=== PATIENT | female | born 1965 | race African-American/Black ===

== ENCOUNTER 2017-02-16 16:45 | Outpatient (RCR) | payer OTHER ==
[~2017-02-16 16:45] MED LIST: ADVAIR IH; AMOXICILLIN875 MG PO; AUBAGIO7 MG PO; AZULFIDINE500 MG/TAB PO; BACTRIM DS 8001 TAB PO; BENZONATATE200 MG PO; CEPHALEXIN500 M1 PO; CLARITIN; CLARITIN 1010 MG/TAB PO; FERROUS SULFATE65 MG PO; FLONASE NASAL S16 GM NS; GENTAMICIN EYE D5 ML OS; HCTZ 25MG25 MG PO; IBUPROFEN800 MG PO; LISINOPRIL10 MG PO; LO LOESTRIN FE1 TAB PO; LORATADINE10 MG PO; MOBIC 7.5MG7.5 MG PO; MULTIPLE VITAMI1 TA5 PO; MVI; NORCO 325 MG-51 TAB PO; PERCOCET 500 MG1 TAB PO; PHENERGAN W/CO120 ML PO; PREDNISONE20 MG PO; PROAIR HFA0.09 MG/AC IH; SINGULAIR; SINGULAIR 110 MG/TAB PO; SOLU CORTE IJ; VENTOLIN0.09 MG IH; VITAMIN D; VITAMIN D1000 IU PO; ZITHROMAX Z PA250 MG PO; ZOFRAN 4MG T4 MG/TAB PO
== END 2017-03-01 | disposition home or self-care (01) ==
LOC: WSPT
DX: G35 Multiple sclerosis (principal)

== ENCOUNTER → 2017-05-11 | Outpatient (CLI) | payer OTHER | LOC: COL.RAD 11:09 | DX: D25.9 Leiomyoma of uterus, unspecified (principal) ==

== ENCOUNTER 2017-06-01 16:45 | Outpatient (RCR) | payer OTHER | END 2017-06-14 | disposition still patient (30) | LOC: WSPT | DX: G35 Multiple sclerosis (principal) ==

== ENCOUNTER → 2017-08-17 | Outpatient (CLI) | payer OTHER | LOC: COL.RAD 09:45 | DX: G35 Multiple sclerosis (principal); M48.02 Spinal stenosis, cervical region; M50.322 Other cervical disc degeneration at C5-C6 level; M79.604 Pain in right leg; R16.0 Hepatomegaly, not elsewhere classified | CPT/HCPCS: A9585 ==

== ENCOUNTER 2017-08-31 16:45 | Outpatient (RCR) | payer OTHER | END 2017-09-13 | LOC: WSPT | DX: G35 Multiple sclerosis (principal) ==

== ENCOUNTER 2017-12-07 16:45 | Outpatient (RCR) | payer OTHER | END 2017-12-13 | LOC: WSPT | DX: G35 Multiple sclerosis (principal); M13.0 Polyarthritis, unspecified ==

== ENCOUNTER 2018-03-01 16:45 | Outpatient (RCR) | payer OTHER | END 2018-03-21 | disposition home or self-care (01) | LOC: WSPT | DX: G35 Multiple sclerosis (principal) ==

== ENCOUNTER 2018-06-14 16:45 | Outpatient (RCR) | payer OTHER | END 2018-06-20 | disposition home or self-care (01) | LOC: WSPT | DX: G35 Multiple sclerosis (principal); M25.551 Pain in right hip; M25.572 Pain in left ankle and joints of left foot ==

== ENCOUNTER 2018-09-27 15:00 | Outpatient (RCR) | payer OTHER | END 2018-10-06 | disposition home or self-care (01) | LOC: WSPT | DX: G35 Multiple sclerosis (principal) ==

== ENCOUNTER → 2018-10-09 | Outpatient (CLI) | payer OTHER | LOC: MHCPAIN 14:53 | DX: G89.29 Other chronic pain (principal); M47.817 Spondylosis without myelopathy or radiculopathy, lumbosacral region; M54.16 Radiculopathy, lumbar region; M53.3 Sacrococcygeal disorders, not elsewhere classified | CPT/HCPCS: G0463 ==

== ENCOUNTER → 2018-11-11 | Outpatient (CLI) | payer OTHER | LOC: MHCPAIN 12:14 | DX: M47.817 Spondylosis without myelopathy or radiculopathy, lumbosacral region (principal); M54.16 Radiculopathy, lumbar region | CPT/HCPCS: J1100; Q9967 ==

== ENCOUNTER → 2018-11-27 | Outpatient (CLI) | payer OTHER | LOC: MHCPAIN 08:56 | DX: G89.29 Other chronic pain (principal); M47.817 Spondylosis without myelopathy or radiculopathy, lumbosacral region; M54.16 Radiculopathy, lumbar region; M53.3 Sacrococcygeal disorders, not elsewhere classified | CPT/HCPCS: G0463 ==

== ENCOUNTER → 2018-12-05 | Outpatient (CLI) | payer OTHER | LOC: MHCPAIN 14:39 | DX: M47.817 Spondylosis without myelopathy or radiculopathy, lumbosacral region (principal); M54.16 Radiculopathy, lumbar region | CPT/HCPCS: J1100; Q9967 ==

== ENCOUNTER → 2019-01-08 | Outpatient (CLI) | payer OTHER | LOC: MHCPAIN 14:12 | DX: G89.29 Other chronic pain (principal); M47.817 Spondylosis without myelopathy or radiculopathy, lumbosacral region; M54.16 Radiculopathy, lumbar region; M53.3 Sacrococcygeal disorders, not elsewhere classified | CPT/HCPCS: G0463 ==

== ENCOUNTER 2019-01-17 16:45 | Outpatient (RCR) | payer OTHER | END 2019-01-30 | LOC: WSPT | DX: G35 Multiple sclerosis (principal) ==

== ENCOUNTER → 2019-01-23 | Outpatient (CLI) | payer OTHER | LOC: MHCPAIN 15:05 | DX: M47.817 Spondylosis without myelopathy or radiculopathy, lumbosacral region (principal); M54.16 Radiculopathy, lumbar region | CPT/HCPCS: J1100; Q9967 ==

== ENCOUNTER → 2019-03-26 | Outpatient (CLI) | payer OTHER | LOC: MHCPAIN 15:32 | DX: G89.29 Other chronic pain (principal); M47.817 Spondylosis without myelopathy or radiculopathy, lumbosacral region; M54.16 Radiculopathy, lumbar region; M53.3 Sacrococcygeal disorders, not elsewhere classified | CPT/HCPCS: G0463 ==

== ENCOUNTER 2019-04-11 16:45 | Outpatient (RCR) | payer OTHER | END 2019-05-08 | LOC: WSPT | DX: G35 Multiple sclerosis (principal) ==

== ENCOUNTER → 2019-04-22 | Outpatient (CLI) | payer OTHER | LOC: MHCPAIN 09:33 | DX: G89.29 Other chronic pain (principal); M47.817 Spondylosis without myelopathy or radiculopathy, lumbosacral region; M54.16 Radiculopathy, lumbar region; M53.3 Sacrococcygeal disorders, not elsewhere classified | CPT/HCPCS: G0463 ==

== ENCOUNTER → 2019-04-25 | Outpatient (CLI) | payer OTHER | LOC: COL.RAD 08:00 | DX: G35 Multiple sclerosis (principal); M47.812 Spondylosis without myelopathy or radiculopathy, cervical region | CPT/HCPCS: A9585 ==

== ENCOUNTER → 2019-05-01 | Outpatient (CLI) | payer OTHER | LOC: MHCPAIN 13:33 | DX: M47.817 Spondylosis without myelopathy or radiculopathy, lumbosacral region (principal); M54.16 Radiculopathy, lumbar region ==

== ENCOUNTER → 2019-05-07 | Outpatient (CLI) | payer OTHER | LOC: MHCPAIN 15:35 | DX: G89.29 Other chronic pain (principal); M47.817 Spondylosis without myelopathy or radiculopathy, lumbosacral region; M53.3 Sacrococcygeal disorders, not elsewhere classified | CPT/HCPCS: G0463 ==

== ENCOUNTER → 2019-05-09 | Outpatient (CLI) | payer OTHER | LOC: COL.RAD 10:29 | DX: G35 Multiple sclerosis (principal); M51.34 Other intervertebral disc degeneration, thoracic region | CPT/HCPCS: A9585 ==

== ENCOUNTER → 2019-05-29 | Outpatient (CLI) | payer OTHER | LOC: MHCPAIN 13:42 | DX: M47.817 Spondylosis without myelopathy or radiculopathy, lumbosacral region (principal); M54.16 Radiculopathy, lumbar region | CPT/HCPCS: J1100; J2250; J3010 ==

== ENCOUNTER → 2019-06-12 | Outpatient (CLI) | payer OTHER | LOC: MHCPAIN 13:39 | DX: M47.817 Spondylosis without myelopathy or radiculopathy, lumbosacral region (principal); M54.16 Radiculopathy, lumbar region | CPT/HCPCS: J1100; J2250; J3010 ==

== ENCOUNTER 2019-08-01 16:45 | Outpatient (RCR) | payer OTHER | END 2019-08-14 | disposition home or self-care (01) | LOC: WSPT | DX: G35 Multiple sclerosis (principal); R20.0 Anesthesia of skin ==

== ENCOUNTER → 2019-08-13 | Outpatient (CLI) | payer OTHER | LOC: MHCPAIN 15:32 | DX: M47.817 Spondylosis without myelopathy or radiculopathy, lumbosacral region (principal); M53.3 Sacrococcygeal disorders, not elsewhere classified | CPT/HCPCS: G0463 ==

== ENCOUNTER 2019-11-14 16:45 | Outpatient (RCR) | payer OTHER | END 2019-11-27 | disposition home or self-care (01) | LOC: WSPT | DX: G35 Multiple sclerosis (principal) ==

== ENCOUNTER → 2020-01-14 | Outpatient (CLI) | payer OTHER | LOC: MHCPAIN 15:33 | DX: M54.5 Low back pain (principal); M53.3 Sacrococcygeal disorders, not elsewhere classified; G89.29 Other chronic pain | CPT/HCPCS: G0463 ==

== ENCOUNTER → 2020-03-03 | Outpatient (CLI) | payer OTHER | LOC: MHCPAIN 14:52 | DX: M47.817 Spondylosis without myelopathy or radiculopathy, lumbosacral region (principal); M54.5 Low back pain; M53.3 Sacrococcygeal disorders, not elsewhere classified; G89.29 Other chronic pain | CPT/HCPCS: G0463 ==

== ENCOUNTER → 2020-03-11 | Outpatient (CLI) | payer OTHER | LOC: MHCPAIN 14:31 | DX: M47.817 Spondylosis without myelopathy or radiculopathy, lumbosacral region (principal); M54.5 Low back pain | CPT/HCPCS: J1100; Q9967 ==

== ENCOUNTER → 2020-03-24 | Outpatient (CLI) | payer OTHER | LOC: MHCPAIN 15:53 | DX: M47.817 Spondylosis without myelopathy or radiculopathy, lumbosacral region (principal); M54.5 Low back pain; M53.3 Sacrococcygeal disorders, not elsewhere classified; G89.29 Other chronic pain; M54.16 Radiculopathy, lumbar region | CPT/HCPCS: G0463 ==

== ENCOUNTER → 2020-04-08 | Outpatient (CLI) | payer OTHER | LOC: MHCPAIN 14:26 | DX: M47.817 Spondylosis without myelopathy or radiculopathy, lumbosacral region (principal); M54.5 Low back pain; M53.3 Sacrococcygeal disorders, not elsewhere classified | CPT/HCPCS: J1100; Q9967 ==

== ENCOUNTER → 2020-05-04 | Outpatient (CLI) | payer OTHER | LOC: MHCPAIN 04-19 11:06 | DX: M47.817 Spondylosis without myelopathy or radiculopathy, lumbosacral region (principal); M54.5 Low back pain; M53.3 Sacrococcygeal disorders, not elsewhere classified; G89.29 Other chronic pain; M54.16 Radiculopathy, lumbar region | CPT/HCPCS: G0463 ==

== ENCOUNTER → 2020-05-06 | Outpatient (CLI) | payer OTHER | LOC: MHCPAIN 14:51 | DX: M47.817 Spondylosis without myelopathy or radiculopathy, lumbosacral region (principal); M54.16 Radiculopathy, lumbar region | CPT/HCPCS: J1100; Q9967 ==

== ENCOUNTER → 2020-05-25 | Outpatient (CLI) | payer OTHER | LOC: MHCPAIN 15:36 | DX: M47.817 Spondylosis without myelopathy or radiculopathy, lumbosacral region (principal); M54.5 Low back pain; M53.3 Sacrococcygeal disorders, not elsewhere classified; G89.29 Other chronic pain | CPT/HCPCS: G0463 ==

== ENCOUNTER → 2020-05-27 | Outpatient (CLI) | payer OTHER | LOC: MHCPAIN 15:08 | DX: M47.817 Spondylosis without myelopathy or radiculopathy, lumbosacral region (principal); M54.5 Low back pain ==

== ENCOUNTER 2020-06-04 16:30 | Outpatient (RCR) | payer OTHER | END 2020-06-17 | disposition home or self-care (01) | LOC: WSPT | DX: G35 Multiple sclerosis (principal) ==

== ENCOUNTER → 2020-06-15 | Outpatient (CLI) | payer OTHER | LOC: MHCPAIN 15:53 | DX: M47.817 Spondylosis without myelopathy or radiculopathy, lumbosacral region (principal); M54.5 Low back pain; M53.3 Sacrococcygeal disorders, not elsewhere classified; G89.29 Other chronic pain | CPT/HCPCS: G0463 ==

== ENCOUNTER → 2020-07-01 | Outpatient (CLI) | payer OTHER | LOC: MHCPAIN 14:08 | DX: M47.817 Spondylosis without myelopathy or radiculopathy, lumbosacral region (principal); M54.5 Low back pain | CPT/HCPCS: J2250; J3010 ==

== ENCOUNTER → 2020-07-05 | Outpatient (CLI) | payer OTHER | LOC: MHCPAIN 12:44 | DX: M47.817 Spondylosis without myelopathy or radiculopathy, lumbosacral region (principal); M54.5 Low back pain | CPT/HCPCS: J2250; J3010 ==

== ENCOUNTER 2020-08-13 16:30 | Outpatient (RCR) | payer OTHER | END 2020-08-30 | disposition home or self-care (01) | LOC: WSPT | DX: G35 Multiple sclerosis (principal) ==

== ENCOUNTER → 2020-09-07 | Outpatient (CLI) | payer OTHER | LOC: MHCPAIN 10:02 | DX: M47.817 Spondylosis without myelopathy or radiculopathy, lumbosacral region (principal); M79.2 Neuralgia and neuritis, unspecified; G89.29 Other chronic pain; M53.3 Sacrococcygeal disorders, not elsewhere classified | CPT/HCPCS: G0463 ==

== ENCOUNTER 2020-11-26 16:45 | Outpatient (RCR) | payer OTHER | END 2020-12-05 | disposition home or self-care (01) | LOC: WSPT | DX: M25.561 Pain in right knee (principal) ==

== ENCOUNTER → 2020-11-26 | Outpatient (CLI) | payer OTHER | LOC: COL.RAD 11-16 08:15 | DX: M17.11 Unilateral primary osteoarthritis, right knee (principal) ==

== ENCOUNTER → 2020-12-31 | Outpatient (CLI) | payer OTHER | LOC: COL.RAD 14:40 | DX: M47.816 Spondylosis without myelopathy or radiculopathy, lumbar region (principal); M48.061 Spinal stenosis, lumbar region without neurogenic claudication; S33.130A Subluxation of L3/L4 lumbar vertebra, initial encounter; S33.140A Subluxation of L4/L5 lumbar vertebra, initial encounter; S33.39XA Dislocation of other parts of lumbar spine and pelvis, initial encounter; R19.00 Intra-abdominal and pelvic swelling, mass and lump, unspecified site ==

== ENCOUNTER → 2021-01-05 | Outpatient (CLI) | payer OTHER | LOC: MHCPAIN 15:11 | DX: M47.817 Spondylosis without myelopathy or radiculopathy, lumbosacral region (principal); M54.5 Low back pain; M54.16 Radiculopathy, lumbar region; M53.3 Sacrococcygeal disorders, not elsewhere classified | CPT/HCPCS: G0463 ==

== ENCOUNTER 2021-04-01 16:30 | Outpatient (RCR) | payer OTHER | END 2021-04-07 | disposition home or self-care (01) | LOC: WSPT | DX: M51.36 Other intervertebral disc degeneration, lumbar region (principal); M47.819 Spondylosis without myelopathy or radiculopathy, site unspecified; M48.062 Spinal stenosis, lumbar region with neurogenic claudication; M48.061 Spinal stenosis, lumbar region without neurogenic claudication ==

== ENCOUNTER 2021-06-17 16:30 | Outpatient (RCR) | payer OTHER | END 2021-07-28 | disposition home or self-care (01) | LOC: WSPT | DX: G35 Multiple sclerosis (principal); Z91.81 History of falling ==

== ENCOUNTER → 2021-07-06 | Outpatient (CLI) | payer OTHER | LOC: MHCPAIN 06-30 10:31 | DX: M47.816 Spondylosis without myelopathy or radiculopathy, lumbar region (principal); M54.50 Low back pain, unspecified; M53.3 Sacrococcygeal disorders, not elsewhere classified | CPT/HCPCS: G0463; J1100; Q9967 ==

== ENCOUNTER → 2021-07-19 | Outpatient (CLI) | payer OTHER | LOC: MHCPAIN 14:53 | DX: M47.817 Spondylosis without myelopathy or radiculopathy, lumbosacral region (principal); M48.062 Spinal stenosis, lumbar region with neurogenic claudication; M54.16 Radiculopathy, lumbar region; M53.3 Sacrococcygeal disorders, not elsewhere classified | CPT/HCPCS: G0463 ==

== ENCOUNTER → 2021-08-04 | Outpatient (CLI) | payer OTHER | LOC: MHCPAIN 14:29 | DX: M47.817 Spondylosis without myelopathy or radiculopathy, lumbosacral region (principal); M53.3 Sacrococcygeal disorders, not elsewhere classified; M54.16 Radiculopathy, lumbar region | CPT/HCPCS: J1100; Q9967 ==

== ENCOUNTER → 2021-09-05 | Outpatient (CLI) | payer OTHER | LOC: MHCPAIN 15:06 | DX: M47.817 Spondylosis without myelopathy or radiculopathy, lumbosacral region (principal); M53.3 Sacrococcygeal disorders, not elsewhere classified; M54.16 Radiculopathy, lumbar region; G89.29 Other chronic pain | CPT/HCPCS: G0463 ==

== ENCOUNTER → 2021-09-22 | Outpatient (CLI) | payer OTHER | LOC: MHCPAIN 13:33 | DX: M47.817 Spondylosis without myelopathy or radiculopathy, lumbosacral region (principal); M53.3 Sacrococcygeal disorders, not elsewhere classified; M54.16 Radiculopathy, lumbar region | CPT/HCPCS: J1100; Q9967 ==

== ENCOUNTER → 2021-09-26 | Outpatient (CLI) | payer OTHER | LOC: COL.RAD 09:20 | DX: M50.322 Other cervical disc degeneration at C5-C6 level (principal); M48.02 Spinal stenosis, cervical region; M48.07 Spinal stenosis, lumbosacral region | CPT/HCPCS: A9585 ==

== ENCOUNTER → 2021-10-03 | Outpatient (CLI) | payer OTHER | LOC: COL.RAD 09-23 09:00 | DX: M48.061 Spinal stenosis, lumbar region without neurogenic claudication (principal); M47.816 Spondylosis without myelopathy or radiculopathy, lumbar region; M43.16 Spondylolisthesis, lumbar region; M51.26 Other intervertebral disc displacement, lumbar region; G35 Multiple sclerosis; M48.07 Spinal stenosis, lumbosacral region | CPT/HCPCS: A9585 ==

== ENCOUNTER 2022-01-10 15:54 | Outpatient (RCR) | payer OTHER | END 2022-01-24 | disposition home or self-care (01) | LOC: WSPT | DX: M48.062 Spinal stenosis, lumbar region with neurogenic claudication (principal); M43.16 Spondylolisthesis, lumbar region ==

== ENCOUNTER → 2022-01-30 | Outpatient (CLI) | payer OTHER | LOC: MHCPAIN 14:33 | DX: M47.817 Spondylosis without myelopathy or radiculopathy, lumbosacral region (principal); M54.50 Low back pain, unspecified; M54.16 Radiculopathy, lumbar region; M53.3 Sacrococcygeal disorders, not elsewhere classified | CPT/HCPCS: G0463 ==

== ENCOUNTER → 2022-02-13 | Outpatient (CLI) | payer OTHER | LOC: MHCPAIN 14:30 | DX: M47.817 Spondylosis without myelopathy or radiculopathy, lumbosacral region (principal); M53.3 Sacrococcygeal disorders, not elsewhere classified; M54.17 Radiculopathy, lumbosacral region | CPT/HCPCS: J1100; Q9967 ==

== ENCOUNTER 2022-02-22 16:45 | Outpatient (RCR) | payer OTHER | END 2022-02-23 | disposition home or self-care (01) | LOC: WSPT | DX: M48.062 Spinal stenosis, lumbar region with neurogenic claudication (principal); M43.16 Spondylolisthesis, lumbar region ==

== ENCOUNTER 2022-03-09 13:30 | Outpatient (RCR) | payer OTHER | END 2022-03-26 | disposition home or self-care (01) | LOC: WSPT | DX: M48.062 Spinal stenosis, lumbar region with neurogenic claudication (principal); M43.16 Spondylolisthesis, lumbar region ==

== ENCOUNTER 2022-04-20 15:45 | Outpatient (RCR) | payer OTHER | END 2022-04-26 | disposition home or self-care (01) | LOC: WSPT | DX: M48.062 Spinal stenosis, lumbar region with neurogenic claudication (principal); M43.16 Spondylolisthesis, lumbar region; G35 Multiple sclerosis ==

== ENCOUNTER → 2022-07-06 | Outpatient (CLI) | payer OTHER | LOC: MHCPAIN 13:07 | DX: M47.817 Spondylosis without myelopathy or radiculopathy, lumbosacral region (principal); M53.3 Sacrococcygeal disorders, not elsewhere classified; M54.17 Radiculopathy, lumbosacral region | CPT/HCPCS: G0463; J1100; Q9967 ==

== ENCOUNTER → 2022-11-07 | Outpatient (CLI) | payer OTHER | LOC: MHCPAIN 14:20 | DX: M47.897 Other spondylosis, lumbosacral region (principal); M54.17 Radiculopathy, lumbosacral region | CPT/HCPCS: G0463 ==

== ENCOUNTER 2023-04-18 13:49 | Outpatient (RCR) | payer OTHER | END 2023-04-26 | disposition home or self-care (01) | LOC: MKS.ESL.PT | DX: M48.07 Spinal stenosis, lumbosacral region (principal) ==

== ENCOUNTER 2023-05-21 16:30 | Outpatient (RCR) | payer OTHER | END 2023-05-26 | disposition home or self-care (01) | LOC: MKS.ESL.PT | DX: M48.07 Spinal stenosis, lumbosacral region (principal) ==

== ENCOUNTER 2023-09-21 13:00 | Outpatient (RCR) | payer OTHER | END 2023-09-26 | disposition home or self-care (01) | LOC: PT.GENESIS | DX: G35 Multiple sclerosis (principal); M48.00 Spinal stenosis, site unspecified ==

== ENCOUNTER 2023-11-19 16:45 | Outpatient (RCR) | payer OTHER | END 2023-11-25 | disposition home or self-care (01) | LOC: PT.GENESIS | DX: M48.00 Spinal stenosis, site unspecified (principal); G35 Multiple sclerosis ==